=== PATIENT | male | born 2005 | race African-American/Black ===

== ENCOUNTER 2025-04-26 08:26 | Emergency (ER) | payer MEDICAID ==
[~2025-04-26] VITALS: Ht 180.3 cm; Wt 81.0 kg
[2025-04-26 08:32] VITALS: O2SAT 100
[2025-04-26] MEDS ORDERED: PROT40 MT (09:04)
[2025-04-26] MEDS ORDERED: TRAZ-251 MT (09:04)
[2025-04-26 09:15] VITALS: BP 134/84; PULSE 62; RESP 18; TEMP 37.1; O2SAT 99
== END 2025-04-26 09:20 | disposition home or self-care (01) ==
LOC: ER 08:26
DX: K21.9 Gastro-esophageal reflux disease without esophagitis (principal); Z79.899 Other long term (current) drug therapy
CPT/HCPCS: 99283